=== PATIENT | male | born 1965 | race Caucasian/White ===

== ENCOUNTER 2017-02-15 02:32 | Emergency (ER) | payer SELFPAY ==
[~2017-02-15] VITALS: Wt 90.7 kg
[~2017-02-15 02:32] MED LIST: BENTYL20 MG PO; HYDROCODONE BIT1 T11 PO; PEPCID40 MG PO; ULTRAM50 MG PO; VICODIN 5/500 505 MG PO
[2017-02-15 02:50] LABS: BILIRUBIN NEGATIVE (NEGATIVE); BLOOD NEGATIVE (NEGATIVE); CLARITY SL CLOUDY (CLEAR); COLOR YELLOW (YELLOW); GLUCOSE NEGATIVE (NEGATIVE); KETONE NEGATIVE (NEGATIVE); LEUKO ESTERASE NEGATIVE (NEGATIVE); NITRITE NEGATIVE (NEGATIVE); SPECIFIC GRAVITY >= 1.030 (1.005-1.030); UROBILINOGEN 0.2 E.U./dl (0.2-1.0)
[2017-02-15 03:10] LABS: BASO % 0.4 % (0.0-1.0); EOS # 0.1 10*3/uL (0.0-0.4); EOS % 1.3 % (1.0-4.0); HEMATOCRIT 43.1 % (42.0-52.0); HEMOGLOBIN 14.4 g/dl (14.0-18.0); LYMPH # 1.9 10*3/uL (1.3-4.4); LYMPH % 20.1 % (27.0-41.0); MEAN CELL VOLUME 90.2 fl (80.0-94.0); MEAN CORPUSCULAR HGB 30.1 pg (27.0-31.0); MEAN CORPUSCULAR HGB CONC 33.4 g/dl (33.0-37.0); MEAN PLATELET VOLUME 9.6 fl (9.6-12.3); MONO # 0.9 10*3/uL (0.1-1.0); MONO % 9.3 % (3.0-9.0); NEUT # 6.6 10*3/uL (2.3-7.9); NEUT % 68.1 % (47.0-73.0); PLATELET COUNT AUTOMATED 251 10*3/uL (130-400); RED BLOOD COUNT 4.78 10*6/uL (4.50-5.90); RED CELL DISTRI WIDTH 13.5 % (0-14.5); WHITE BLOOD COUNT 9.7 10*3/uL (4.8-10.8)
[2017-02-15] MEDS ORDERED: TORSEMIDE10 MG PO (03:22)
[2017-02-15] MEDS ORDERED: SEPTDS PO (03:23)
[2017-02-15] MEDS ORDERED: KETOROLAC10 MG PO (03:24)
[2017-02-15 03:31] LABS: ALBUMIN 3.8 gm/dl (3.1-4.5); ALKALINE PHOSPHATASE 90 U/L (45-117); BUN 18 mg/dl (7-24); CHLORIDE 106 mmol/L (98-107); CREATININE 1.12 mg/dL (0.70-1.30); POTASSIUM 3.8 mmol/L (3.5-5.1); SGOT/AST 35 IU/L (3-35); SGPT/ALT 55 U/L (12-78); SODIUM 141 mmol/L (136-145); TOTAL PROTEIN 7.5 gm/dL (6.4-8.2)
== END 2017-02-15 03:37 | disposition home or self-care (01) ==
LOC: ED 02:32
PROVIDERS: Student in an Organized Health Care Education/Training Program
DX: N20.0 Calculus of kidney (principal); F17.200 Nicotine dependence, unspecified, uncomplicated

== ENCOUNTER → 2021-03-08 | Outpatient (CLI) | payer OTHER ==
[~2021-03-08] MED LIST changes: +KETOROLAC10 MG PO; +SEPTDS PO; +TORSEMIDE10 MG PO
== END | disposition home or self-care (01) ==
LOC: COVID19 16:19
PROVIDERS: ATTEND Internal Medicine
DX: U07.1 COVID-19 (principal)

== ENCOUNTER 2021-10-11 14:36 | Emergency (ER) | payer SELFPAY ==
[~2021-10-11] VITALS: Ht 182.8 cm; Wt 83.9 kg
[2021-10-11] MEDS ORDERED: GOOD SENSE ASP325 MG PO (16:15)
== END 2021-10-11 17:40 | disposition home or self-care (01) ==
LOC: ED 14:36
DX: T15.82XA Foreign body in other and multiple parts of external eye, left eye, initial encounter (principal); F17.200 Nicotine dependence, unspecified, uncomplicated; Z79.82 Long term (current) use of aspirin; W22.8XXA Striking against or struck by other objects, initial encounter; Y93.89 Activity, other specified; Y92.89 Other specified places as the place of occurrence of the external cause; Y99.8 Other external cause status

== ENCOUNTER → 2022-07-04 | Outpatient (CLI) | payer OTHER ==
[~2022-07-04] MED LIST changes: +AMOX-CLAV 500-1 EACH PO; +BUPROPION HYDR150 M3 PO; +FLOMAX0.4 MG PO; +GOOD SENSE ASP325 MG PO; +HYDR12.5C PO; +LOSARTAN POTASS50 M1 PO; +PROPRANOLOL HCL20 MG PO; +ROSUVASTATIN CA10 MG PO
== END | disposition home or self-care (01) ==
LOC: CARD 00:12
PROVIDERS: ATTEND Internal Medicine Cardiovascular Disease
DX: I20.9 Angina pectoris, unspecified (principal)